=== PATIENT | male | born 1980 | race Caucasian/White ===

== ENCOUNTER 2020-04-08 11:42 | Emergency (ER) | payer OTHER ==
[~2020-04-08] VITALS: Ht 170.2 cm; Wt 81.8 kg
[2020-04-08 11:46] VITALS: BP 150/103; TEMP 98.6
[2020-04-08 13:35] VITALS: PULSE 85
[2020-04-08] MEDS ORDERED: ULTRAM 50MG TAB50 MG PO (13:36)
== END 2020-04-08 13:36 | disposition home or self-care (01) ==
LOC: COL.ER 11:42
DX: S83.92XA Sprain of unspecified site of left knee, initial encounter (principal); F17.210 Nicotine dependence, cigarettes, uncomplicated; Z96.652 Presence of left artificial knee joint; X50.0XXA Overexertion from strenuous movement or load, initial encounter